=== PATIENT | female | born 1995 | race Caucasian/White ===

== ENCOUNTER 2016-05-11 02:00 | Inpatient (IN) | payer BC ==
[~2016-05-11] VITALS: Ht 175.3 cm; Wt 86.2 kg
[~2016-05-11 02:00] MED LIST: KEFLEX 500MG.500 MG PO
[2016-05-11 02:28] VITALS: BP 152/81
[2016-05-11 02:49] LABS: URINE BILIRUBIN - DIPSTICK NEGATIVE (NEG); URINE BLOOD 1+ (NEG)
[2016-05-11 02:59] LABS: AMPHETAMINES/METAMPHETAMINES NEGATIVE ng/mL (<1000)
[2016-05-11 03:19] LABS: HEMOGLOBIN 12.9 g/dL (12.2-16.2); LYMPH # 2.2 K/mm3 (0.7-4.5); LYMPH % 14.1 % (10-50.0)
--- NOTE | 2016-05-11 03:40 | HISTORY AND PHYSICAL REPORT ---
Demographics: Admit date: 05/11/16 Chief complaint: My water broke PRIMARY DIAGNOSIS: SROM Allergies: Coded Allergies: Sulfa (Sulfonamide Antibiotics) (Intermediate, 05/11/16) amoxicillin (Intermediate, 05/11/16) History of present illness: History of present illness: 20 y/o with unknown LMP but sometime in September 2015 @ 38 1/7wks with EDC by records. Pt presents to L&D with c/o LOF at about 2330 hrs and contraction that started about 10 mins after LOF. Pt did not come in to hospital after LOF as she was unsure of what to do. Pt denies VB. Admits to good FM. Pt notes late to PNC and did not begin PNC until 24wks as she did not know she was Past medical history: Family HX Family Hx Insignificant Yes Immunization HX DT/Tetanus 1-4 YRS Flu Refused Pneumonia Refuses General Angina: No NH: No Hypertension? No Hyperlipidemia? No COPD? No Asthma? No CVA? No Seizures? No Diabetes? No GB Disease: No MRSA? No TB? No Cancer? No Past Surgical HX Previous Surgery?N Current home meds: Discontinued Scripts CEPHALEXIN (Keflex 500MG Capsule) 500 MG PO TID 10 Days Prov: 09/29/07 DC: 05/11/16 0332 Social Hx: Smoking HX Tobacco No Alcohol Alcohol: No Hx of Drug Use Drug Use? No Patien't marital status is single Patient's support system is good Review of systems: Constitutional no symptoms reported. No: chills, diaphoresis, fever, malaise, weakness. Eyes no symptoms reported. Ears, Nose, Mouth, Throat no symptoms reported Respiratory no symptoms reported. No: see HPI, cough, orthopnea, shortness of breath, SOB with excertion, SOB at rest, stridor, wheezing, other. Cardiovascular no symptoms reported, No see HPI, No chest pain, No edema, No palpitations, No syncope, No other Gastrointestinal/Abdominal no symptoms reported, No see HPI, No abdomen distended, No abdominal pain, No blood streaked bowels, No constipated, No diarrhea, No difficulty swallowing, No nausea, No poor appetite, No poor fluid intake, No rectal bleeding, No vomiting, No other Genitourinary no symptoms reported. No: see HPI, discharge, abnormal vaginal bleeding, normal menstrual period, vaginal discharge, dysuria, frequency, hesitancy, hematuria, dyspareunia, pain, pelvic pain, hx stds, genital lesions, other, , labia tenderness, penis tenderness, scrotal tenderness. Musculoskeletal no symptoms reported. No: back pain, gout, joint pain, joint swelling, muscle pain, muscle stiffness, neck pain, other. Skin no symptoms reported. No: change in color, change in hair/nails, dryness, lesions, lumps, rash, other. Neurological No: no symptoms reported, headache, numbness, tingling, tremors, weakness, parasthesia, seizure disorder. Psychiatric No: anxious, depressed, other, withdrawn. Exam: Lab data for last 24 hours: Laboratory Tests 05/11/16 0300: WBC 15.3 H, RBC 4.24, Hgb 12.9, Hct 38.7, MCV 91.3, RDW 13.8, Plt Count 263, MPV 8.6, Gran % 79.1, Gran # 12.1 H, Lymphocytes % 14.1, Monocytes % 5.7, Eosinophils % 0.8, Basophils % 0.3, Lymphocytes # 2.2, Monocytes # 0.9, Eosinophils # 0.1, Basophils # 0.0, PUBS MCHC 33.3, MCH 30.4 05/11/16 0235: Membrane Rupture POSITIVE- RUPTURED 05/11/16 0210: Opiates Screen NEGATIVE, Urine Methadone Screen NEGATIVE, Barbiturates NEGATIVE, Phencyclidine Screen NEGATIVE, Amphetamines Screen NEGATIVE, Benzodiazepines Screen NEGATIVE, Cocaine Screen NEGATIVE, Marijuana (THC) Screen NEGATIVE, Urine Color YELLOW, Urine Appearance SL CLOUDY, Urine pH 7.0, Ur Specific [place] 1.015, Urine Protein NEGATIVE, Urine Ketones NEGATIVE, Urine Blood 1+ H, Urine Nitrate NEGATIVE, Urine Bilirubin NEGATIVE, Urine Urobilinogen 0.2, Ur Leukocyte Esterase NEGATIVE, Urine RBC 5-10, Urine WBC 3-5, Ur Squamous Epith Cells 10-20, Amorphous Sediment TRACE, Urine Glucose NEGATIVE Admission vital signs: 1ST Vital Signs Result Date Time B/P 152/81 05/11 227 Temp 97.7 05/11 227 Pulse 110 05/11 227 Resp 20 05/11 227 Exam General appearance: normal appearance Eyes: normal exam Cardiovascular: normal exam Respiratory: normal exam ABD: no rebound, soft, gravid Genitourinary: normal voiding & quantity Extremities: normal exam Musculoskeletal: normal exam Skin: normal exam Neuro: normal exam Additional information: SVEL 5-6/75/-2 @ ~0230 by RN, +pooling per RN Plan: Problem List 1. SROM (spontaneous rupture of membranes) Plan: @ 38 1/7wks with SROM -admit to L&D -GBS neg -Declines epidural -elevated BP, will monitor, may be secondary to pain, pt declines epidural. If cont to be elevated with obtain PIH labs. Declines any PreE s/s -expectant management at [phone]
[2016-05-11 03:41] LABS: NEUTROPHILS 75 % (42-76)
[2016-05-11 03:56] LABS: ABO BLOOD TYPE O; RH BLOOD TYPE POSITIVE
--- NOTE | 2016-05-11 06:39 | LABOR NOTE ---
Laboring Subjective Subjective Date 05/11/16 Time 0629 Subjective: Pt is having regular contractions, Pt has no irregular contractions, Pt has no nausea, Pt has no urge to push Comment: doing well. contraction pains but still declines epidural. Laboring Objective Objective NST: Reactive Contractions: q 2-3 minutes Cervical dilation: 7 Effacement: 90% Station: 0 Membranes are: Spontaneously Ruptured Fetus monitoring? Yes Type: External Laboring Assessment Assessment Progressing? Yes Cephalopelvic disproportion? No Problem List: 1. SROM (spontaneous rupture of membranes) 2. Encounter for supervision of normal first Laboring Plan Plan Anethesia for epidural? No Continue to labor down? Yes Plan for ? No Continue to monitor? Yes Start pushing? No Continue pushing? No Comment: expectant management FHT reactive/reassurring GBS neg at 0638
--- NOTE | 2016-05-11 06:58 | LABOR NOTE ---
Laboring Subjective Subjective Date 05/11/16 Time 0657 Subjective: Pt is having regular contractions, Pt has no irregular contractions, Pt has no nausea, Pt has no urge to push Comment: no complaints Laboring Objective Objective NST: Reactive Contractions: q 2-3 minutes Cervical dilation: 7-8 Effacement: 90% Station: 0 Membranes are: Spontaneously Ruptured (forebag AROM'd) Comment: FHT: Cat I [place]:Q1-2mins, regularly Fetus monitoring? Yes Type: Internal Laboring Assessment Assessment Progressing? Yes Cephalopelvic disproportion? No Problem List: 1. Encounter for supervision of normal first 2. SROM (spontaneous rupture of membranes) Laboring Plan Plan Anethesia for epidural? No Continue to labor down? Yes Plan for ? No Continue to monitor? Yes Start pushing? No Continue pushing? No Comment: close monitoring expectant management at [phone]
--- NOTE | 2016-05-11 06:58 | LABOR NOTE ---
Laboring Subjective Subjective Date 05/11/16 Time 0657 Subjective: Pt is having regular contractions, Pt has no irregular contractions, Pt has no nausea, Pt has no urge to push Comment: no complaints Laboring Objective Objective NST: Reactive Contractions: q 2-3 minutes Cervical dilation: 7-8 Effacement: 90% Station: 0 Membranes are: Spontaneously Ruptured (forebag AROM'd) Comment: FHT: Cat I [place]:Q1-2mins, regularly Fetus monitoring? Yes Type: Internal Laboring Assessment Assessment Progressing? Yes Cephalopelvic disproportion? No Problem List: 1. Encounter for supervision of normal first 2. SROM (spontaneous rupture of membranes) Laboring Plan Plan Anethesia for epidural? No Continue to labor down? Yes Plan for ? No Continue to monitor? Yes Start pushing? No Continue pushing? No Comment: close monitoring expectant management at 0658
[2016-05-11 07:30] VITALS: BP 132/78
--- NOTE | 2016-05-11 10:47 | Delivery Note ---
Delivery note Delivery date: 05/11/16 Delivery time: 0956 Anesthesia: 1% lido with epinephrine after delivery Was labor medically induced? No Gestational age in weeks: 38 weeks Days: 1 day Delivery prior to 39 weeks? Yes Justification for delivery: Active labor Sex: male score at one minute: 8 at 5 minutes: 9 Type of suction: bulb AF: clear LAC or MLE: LAC (2nd degree) Delivery procedure: Normal Delivery Delivery of placenta: spontaneous Clinical note 20 y/o G1 now P1, was noted to be complete and pushing, Pt pushed infant uncontrollably unto bed with nuchal cord x4 that was reduced after delivered. Nose and mouth were bulb suction. Infant was noted to have spontaneous cry and movement of all 4 exteremities. Cord was clamped and cut by mother. Infant placed on maternal abdomen and chest. 3VC Placenta delivered intact spontaneously and the uterus was not explored. 30u of pitocin was placed in the IV bag to firm the uterus. Examination of the vaginal vault did not reveal 2nd degree laceration and a hemostatic clitorial laceration. The second degree laceration was repaird using 2-0 vicryl in NSF continuously. Examinations of the perineum showed no other lacerations. Pt tolerated procedure well. All sponge and needle counts were correct. Cord blood and cord gases were attempted to be collected. Cord blood was also collected for CBR. EBL 300cc APGARS 8/9, weighing 2830grams (6# 4oz), delivery time 0956hrs placenta time 1008hrs at 1110
--- NOTE | 2016-05-11 20:38 | ACUTE CARE PROGRESS NOTE (QUA) ---
Progress Notes Subjective Date 05/11/16 Time 2033 Note no complaints. occasional cramping but no pain. ambulating well. no n/v/f/c. mod lochia. attempting breast feeding with min success Patient/family reports: no complaints Nursing reports: no complaints Objective Findings Last VS-Temp:98.4 B/P:132/78 Pulse:96 Resp:20 SaO2: Last weight lbs:190 oz:1 K.212 Method:Floor Scales Exam General appearance: normal appearance Cardiovascular: normal exam Respiratory: normal exam ABD: normal exam Genitourinary: normal voiding & quantity Extremities: normal exam Musculoskeletal: normal exam Skin: normal exam Neuro: alert Reviewed: medications, vital signs Assessment/Plan Problem List 1. care and examination Patient condition Stable Plan: continue current care This inpt stay is expected to cross 2 MNs from start of care Yes Comments: doing well cont pp care at 203
[2016-05-11 21:32] VITALS: BP 137/87
[2016-05-12 06:32] LABS: HEMOGLOBIN 11.2 g/dL (12.2-16.2)
[2016-05-12 08:06] VITALS: BP 122/71
--- NOTE | 2016-05-12 11:04 | ACUTE CARE PROGRESS NOTE (QUA) ---
Progress Notes Subjective Date 05/12/16 Time 1101 Note doing well. no complaints. breast feeding without complaints. denies N/V/F/C/CP/ SOB/dizziness or weakness. min lochia. Ambulating and laura reg diet without difficulty. voiding and BM without issues Patient/family reports: feeling better, no complaints Nursing reports: no complaints Objective Findings Last VS-Temp:97.9 B/P:122/71 Pulse:95 Resp:16 SaO2: Last weight lbs:190 oz:1 K.212 Method:Floor Scales Exam General appearance: normal appearance Cardiovascular: normal exam Respiratory: normal exam ABD: normal exam, normal bowel sounds, no rebound, soft, no tenderness Genitourinary: normal voiding & quantity Extremities: normal exam Musculoskeletal: normal exam Skin: normal exam Reviewed: vital signs, lab results Assessment/Plan Problem List 1. care and examination Patient condition Stable Plan: continue current care This inpt stay is expected to cross 2 MNs from start of care Yes (OB Delivery) Comments: cont current pp care d/c in am at 1103
[2016-05-12] MEDS ORDERED: FERROUS SULFAT200 M1 PO (11:28)
[2016-05-12 20:27] VITALS: BP 111/86
--- NOTE | 2016-05-13 06:20 | ACUTE CARE PROGRESS NOTE (QUA) ---
Progress Notes Subjective Date 05/13/16 Time 0619 Note This is day number 2. The patient is afebrile. Vital signs stable. Lochia normal. Uterine fundus involuting well. Perineum healing well. Hemoglobin 11.2 g, but clinically stable. She'll be discharged today. Assessment/Plan Problem List 1. care and examination This inpt stay is expected to cross 2 MNs from start of care Yes (OB Delivery) at 0620
--- NOTE | 2016-05-13 06:25 | DISCHARGE SUMMARY STANDARD ---
Discharge Summary Date of admission: 05/11/16 Date of discharge: 05/13/16 Patient condition: Stable Discharge diagnosis (es): 1. Term intrauterine , delivered. 2. Anemia. Hospital course: This 20-year-old 1, now para 1, AB 0 white female was admitted with spontaneous rupture of membranes at 38-1/7 weeks of gestation. She was having irregular contractions, and was augmented with intravenous Pitocin. She labored effectively, and delivered spontaneously, without an episiotomy, at 0956 on 07/22. The baby was an 8/9, 6 lbs. 4 oz., 18.25 inch male infant, who is breast-feeding, will be circumcised this morning, and has done well. The patient sustained a second-degree perineal laceration, which was closed in the usual fashion. , the patient has done well. She is eating and ambulating, and has had a bowel movement. Her lochia is normal. Her uterine fundus is involuting well. Her perineum is healing well. Her abdomen is soft. She is breast-feeding well. Her hemoglobin is 11.2 g, but she is clinically stable. She is discharged home on the second day on iron and vitamins, and on Tylenol and Motrin, as needed for pain. She is given appropriate instructions as to diet, exercise, and perineal care, and she is to return to the office in 3 weeks for follow-up. She is not a smoker. Her blood type is O positive. Her rubella titer is immune. Should be noted that stem cells were collected from the umbilical cord at the time of delivery. (Delivery by Dr. Reed--[facility] at 5752
[2016-05-13 07:43] VITALS: BP 128/87
== END 2016-05-13 17:20 | disposition home or self-care (01) | DRG 775 ==
LOC: OBOUT 02:00 → OB 02:04 → OBOUT 02:42 → OB 02:43
PROVIDERS: Obstetrics & Gynecology
PROC: 0KQM0ZZ Repair Perineum Muscle, Open Approach (ICD-10-PCS; principal; 2016-05-11)
PROC: 10E0XZZ Delivery of Products of Conception, External Approach (ICD-10-PCS; 2016-05-11)
DX: O70.1 Second degree perineal laceration during delivery (principal); Z37.0 Single live birth; Z3A.38 38 weeks gestation of pregnancy
CPT/HCPCS: C1758